=== PATIENT | male | born 1945 | race Caucasian/White ===

== ENCOUNTER 2016-10-02 00:22 | Emergency (ER) | payer MEDICARE, OTHER | END 2016-10-02 03:51 | disposition left against medical advice (07) | LOC: ER1 00:22 | DX: Z53.21 Procedure and treatment not carried out due to patient leaving prior to being seen by health care provider (principal) | CPT/HCPCS: 99282 ==

== ENCOUNTER 2021-05-13 16:26 | Inpatient (IN) | payer MEDICARE, OTHER ==
[~2021-05-13] VITALS: Ht 177.8 cm; Wt 100.3 kg
[2021-05-13 16:43] LABS: HEMOGLOBIN 12.9 gm/dl (14.0-17.5); RED BLOOD COUNT 4.54 M/UL (4.20-5.50); WHITE BLOOD COUNT 21.9 K/UL (4.5-11.0)
[2021-05-13 17:10] LABS: BUN/CREATININE RATIO 19 (0-10)
[2021-05-13] MEDS ORDERED: METFORMIN HCL1000 MG PO (22:30)
[2021-05-13] MEDS ORDERED: COZAAR 50MG TAB50 MG PO (22:30)
[2021-05-13] MEDS ORDERED: GLUCOTROL5 MG PO (22:31)
[2021-05-13] MEDS ORDERED: JANUVIA100 MG PO (22:31)
[2021-05-13] MEDS ORDERED: LISINOPRIL20 MG PO (22:31)
[2021-05-13] MEDS ORDERED: OMEPRAZOLE20 MG PO (22:32)
[2021-05-13] MEDS ORDERED: ONDANSETRON HCL8 MG PO (22:32)
[2021-05-13] MEDS ORDERED: PREGABALIN200 MG PO (22:32)
[2021-05-13] MEDS ORDERED: CLONAZEPAM1 MG PO (22:33)
[2021-05-13] MEDS ORDERED: HYDROCODON-ACE1 EAC6 PO (22:33)
[2021-05-14 01:51] LABS: RED BLOOD COUNT 4.5 M/UL (4.20-5.50)
[2021-05-14 02:09] LABS: HEMOGLOBIN 9.8 gm/dl (14.0-17.5)
[2021-05-14 05:15] LABS: RED BLOOD COUNT 4.33 M/UL (4.20-5.50); WHITE BLOOD COUNT 29.1 K/UL (4.5-11.0)
[2021-05-14 05:18] LABS: HEMOGLOBIN 12.1 gm/dl (14.0-17.5)
[2021-05-14 05:37] LABS: BUN/CREATININE RATIO 22 (0-10)
[2021-05-14 16:48] LABS: ACINETOBACTER BAUMANNII Not Detected (Negative); CANDIDA ALBICANS Not Detected (Negative); CANDIDA KRUSEI Not Detected (Negative); CANDIDA TROPICALIS Not Detected (Negative); ENTEROCOCCUS Not Detected (Negative); ESCHERICHIA COLI Not Detected (Negative); HAEMOPHILUS INFLUENZAE Not Detected (Negative); KLEBSIELLA OXYTOCA Not Detected (Negative); KLEBSIELLA PNEUMONIAE Not Detected (Negative); KPC-CARBAPENEM-RESISTANCE GENE Not Detected (Negative); PROTEUS Not Detected (Negative); PSEUDOMONAS AERUGINOSA Not Detected (Negative); SERRATIA MARCESANS Not Detected (Negative); STAPHYLOCOCCUS AUREUS Not Detected (Negative); STREP AGALACTIAE (GROUP B) Not Detected (Negative); STREP PYOGENES (GROUP A) Not Detected (Negative); STREPTOCOCCUS Not Detected (Negative); mecA (METHICILLIN RESIST GENE Not Detected (Negative); vanA/B (VANCOMYCIN RESIST GENE Not Detected (Negative)
[2021-05-14 18:00] LABS: STAPHYLOCOCCUS DETECTED (Negative)
[2021-05-14 19:06] LABS: BODY FLUID SOURCE PLEURAL; MONONUCLEAR CELLS 81.5 (75-100); POLYMORPHONUCLEAR % 18.5 (0-25); RBC (AUTOMATED) 1100 (0-100000); WBC (AUTOMATED) 302 (0-500)
[2021-05-14 19:08] LABS: LDH, BODY FLUID 68 U/L; TOTAL PROTEIN, BODY FLUID 2.3 gm/dL
[2021-05-15 04:50] LABS: HEMOGLOBIN 10.9 gm/dl (14.0-17.5); RED BLOOD COUNT 3.94 M/UL (4.20-5.50)
[2021-05-15 05:37] LABS: BUN/CREATININE RATIO 22 (0-10)
[2021-05-16 03:38] LABS: HEMOGLOBIN 11.6 gm/dl (14.0-17.5); RED BLOOD COUNT 4.16 M/UL (4.20-5.50)
[2021-05-16 03:39] LABS: WHITE BLOOD COUNT 20.9 K/UL (4.5-11.0)
[2021-05-17 04:02] LABS: HEMOGLOBIN 11.6 gm/dl (14.0-17.5); RED BLOOD COUNT 4.16 M/UL (4.20-5.50); WHITE BLOOD COUNT 20.9 K/UL (4.5-11.0)
[2021-05-19 05:27] LABS: HEMOGLOBIN 10.6 gm/dl (14.0-17.5); RED BLOOD COUNT 3.92 M/UL (4.20-5.50)
[2021-05-19 05:36] LABS: WHITE BLOOD COUNT 9.1 K/UL (4.5-11.0)
--- NOTE | 2021-05-19 19:37 | NUR ---
@1935 was assisting with pulling PT up in bed and while lifting PT up central line catheter was accidentally removed. The blue catheter in the RIJ was found lying in bed not in PT after PT pulled up on my side so in pulling PT up I accidentally D/Saul central line. Site was covered, no bleeding or bruising noted.
[2021-05-20 07:57] LABS: HEMOGLOBIN 10.4 gm/dl (14.0-17.5); RED BLOOD COUNT 3.76 M/UL (4.20-5.50)
[2021-05-20 07:58] LABS: WHITE BLOOD COUNT 12.3 K/UL (4.5-11.0)
[2021-05-21 02:39] LABS: HEMOGLOBIN 11.2 gm/dl (14.0-17.5); RED BLOOD COUNT 4.02 M/UL (4.20-5.50); WHITE BLOOD COUNT 14.9 K/UL (4.5-11.0)
[2021-05-21 03:04] LABS: BUN/CREATININE RATIO 56 (0-10)
[2021-05-22 04:12] LABS: HEMOGLOBIN 10.7 gm/dl (14.0-17.5); RED BLOOD COUNT 3.88 M/UL (4.20-5.50); WHITE BLOOD COUNT 13.9 K/UL (4.5-11.0)
[2021-05-22 05:35] LABS: BUN/CREATININE RATIO 53 (0-10)
--- NOTE | 2021-05-23 03:18 | NUR ---
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 multiple staff lifted patient back into bed no injuries are noted, some redness to his back no broken skin no complaints of pain form patient. patients son Felipe was notified at 0311, manager agriculture notified at 0313, MD at [phone]. patients bed alarm was activated, his v/s are as followes 153/77, 71,99% on 6L high flow.
[2021-05-23 05:10] LABS: HEMOGLOBIN 12.1 gm/dl (14.0-17.5); WHITE BLOOD COUNT 14.3 K/UL (4.5-11.0)
[2021-05-23 05:17] LABS: RED BLOOD COUNT 4.4 M/UL (4.20-5.50)
[2021-05-23 05:42] LABS: BUN/CREATININE RATIO 51 (0-10)
[2021-05-24 05:50] LABS: HEMOGLOBIN 11.7 gm/dl (14.0-17.5); RED BLOOD COUNT 4.3 M/UL (4.20-5.50); WHITE BLOOD COUNT 14.8 K/UL (4.5-11.0)
[2021-05-24 06:13] LABS: BUN/CREATININE RATIO 47 (0-10)
[2021-05-25 04:58] LABS: BUN/CREATININE RATIO 37 (0-10)
[2021-05-25 08:38] LABS: HEMOGLOBIN 11.3 gm/dl (14.0-17.5); RED BLOOD COUNT 4.11 M/UL (4.20-5.50); WHITE BLOOD COUNT 16.7 K/UL (4.5-11.0)
[2021-05-25 10:14] LABS: ALDOS/RENIN RATIO <.5 (0.0-30.0); ALDOSTERONE <1.0 ng/dL (0.0-30.0)
[2021-05-26 03:07] LABS: HEMOGLOBIN 10.3 gm/dl (14.0-17.5); WHITE BLOOD COUNT 15.4 K/UL (4.5-11.0)
[2021-05-26 03:23] LABS: RED BLOOD COUNT 3.65 M/UL (4.20-5.50)
[2021-05-26 04:33] LABS: BUN/CREATININE RATIO 35 (0-10)
[2021-05-27 10:57] LABS: BUN/CREATININE RATIO 32 (0-10)
[2021-05-27 11:31] LABS: HEMOGLOBIN 10.9 gm/dl (14.0-17.5); RED BLOOD COUNT 4.01 M/UL (4.20-5.50); WHITE BLOOD COUNT 15.3 K/UL (4.5-11.0)
[2021-05-28 03:17] LABS: HEMOGLOBIN 10.2 gm/dl (14.0-17.5); RED BLOOD COUNT 3.79 M/UL (4.20-5.50); WHITE BLOOD COUNT 13.7 K/UL (4.5-11.0)
[2021-05-28 03:44] LABS: BUN/CREATININE RATIO 31 (0-10)
[2021-05-28] MEDS ORDERED: ALDACTONE 25MG25 MG PO (10:49)
[2021-05-28] MEDS ORDERED: ASPIRIN EC81 MG PO (10:49)
[2021-05-28] MEDS ORDERED: MELATONIN3 MG PO (10:49)
[2021-05-28] MEDS ORDERED: POLYETHYLENE GL17 GM GT (10:49)
[2021-05-28] MEDS ORDERED: ATORVASTATIN CA20 MG PO (10:49)
[2021-05-28] MEDS ORDERED: LOPRESSOR 25 MG25 MG PO (10:49)
[2021-05-28] MEDS ORDERED: IPRAT-ALBUT 0.5-3 ML NEB (10:49)
[2021-05-28] MEDS ORDERED: OMNICEF 300 MG300 MG PO (10:51)
[2021-05-28] MEDS ORDERED: AMIODARONE HCL200 MG PO (14:09)
--- NOTE | 2021-05-28 15:09 | NUR ---
NOTE FOR 06/21/21 PATIENT TOLD SON IN FRONT OF THIS NURSE THAT HE PULLED ON THE RAIL AND FELL OUT OF THE BED, BIPAP WAS ON AND IT PREVENTED PATIENTS HEAD FROM HITTING. STATES HE WAS NOT HURT BUT THE FALL WAS ON NIGHTSHIFT. ALSO PATIENTS OTHER SON (NOT KAUSHAL) SAID HE KNEW WHERE PATIENT GOT THE LICE AND IT WAS FROM A FAMILY MEMBER. EDUCATED ON THE LICE BEING A COMMUNICABLE DISEASE, TO SON KAUSHAL, AND WE WANT TO PREVENT PATIENT GETTING THEM AGAIN WELL OUR OTHER PATIENTS. HE WAS APOLOGETIC AT THAT TIME 05-28-21 PATIENT AND SON ARE VERY IRRITABLE AND ANGRY, BLAMING THIS NURSE FOR BEING DISRESPECTFUL TO PATIENT BECAUSE HE WAS RETREATED FOR LICE. PATIENT HAD NITS IN HIS HAIR AND A LIVE LICE WAS FOUND ON INITIAL TREATMENT,WITNESSED PER ANNABEL URIOSTEGUI.
== END 2021-05-28 16:19 | disposition home health service (06) | DRG 870 ==
LOC: ER1 16:26 → CDU 20:30 → CCU 20:30 → PROG CARE 20:30 → CCU 23:00 → PROG CARE 05-20 11:24
PROVIDERS: Internal Medicine; Student in an Organized Health Care Education/Training Program; ADMIT Internal Medicine
PROC: 3E033XZ Introduction of Vasopressor into Peripheral Vein, Percutaneous Approach (ICD-10-PCS; principal; 2021-05-13)
PROC: 5A1955Z Respiratory Ventilation, Greater than 96 Consecutive Hours (ICD-10-PCS; 2021-05-13)
PROC: 0BH17EZ Insertion of Endotracheal Airway into Trachea, Via Natural or Artificial Opening (ICD-10-PCS; 2021-05-13)
PROC: 0W9G3ZZ Drainage of Peritoneal Cavity, Percutaneous Approach (ICD-10-PCS; 2021-05-14)
PROC: 02HV33Z Insertion of Infusion Device into Superior Vena Cava, Percutaneous Approach (ICD-10-PCS; 2021-05-14)
PROC: 0B9F8ZX Drainage of Right Lower Lung Lobe, Via Natural or Artificial Opening Endoscopic, Diagnostic (ICD-10-PCS; 2021-05-17)
PROC: 0BC48ZZ Extirpation of Matter from Right Upper Lobe Bronchus, Via Natural or Artificial Opening Endoscopic (ICD-10-PCS; 2021-05-17)
PROC: 0BJ08ZZ Inspection of Tracheobronchial Tree, Via Natural or Artificial Opening Endoscopic (ICD-10-PCS; 2021-05-17)
DX: A41.1 Sepsis due to other specified staphylococcus (principal); R65.21 Severe sepsis with septic shock; J15.9 Unspecified bacterial pneumonia; I50.23 Acute on chronic systolic (congestive) heart failure; I21.A1 Myocardial infarction type 2; J80 Acute respiratory distress syndrome; G93.41 Metabolic encephalopathy; R57.0 Cardiogenic shock; J44.0 Chronic obstructive pulmonary disease with (acute) lower respiratory infection; J44.1 Chronic obstructive pulmonary disease with (acute) exacerbation; E87.1 Hypo-osmolality and hyponatremia; I47.2 Ventricular tachycardia; E87.2 Acidosis; E87.0 Hyperosmolality and hypernatremia; Z20.822 Contact with and (suspected) exposure to COVID-19; E87.6 Hypokalemia; K66.9 Disorder of peritoneum, unspecified; F17.210 Nicotine dependence, cigarettes, uncomplicated; E11.9 Type 2 diabetes mellitus without complications; I11.0 Hypertensive heart disease with heart failure; N40.0 Benign prostatic hyperplasia without lower urinary tract symptoms; Z96.1 Presence of intraocular lens; E66.9 Obesity, unspecified; D64.9 Anemia, unspecified; E78.5 Hyperlipidemia, unspecified; E87.5 Hyperkalemia; Z85.528 Personal history of other malignant neoplasm of kidney; Z79.82 Long term (current) use of aspirin; Z79.4 Long term (current) use of insulin; Z98.41 Cataract extraction status, right eye; Z98.42 Cataract extraction status, left eye; Z79.01 Long term (current) use of anticoagulants; Z79.52 Long term (current) use of systemic steroids; Z68.27 Body mass index [BMI] 27.0-27.9, adult
CPT/HCPCS: ECHO; 31500; 36415; 36600; 71045; 71275; 74230; 78452; 80048; 80053; 80202; 82024; 82088; 82397; 82533; 82550; 82553; 82803; 82945; 82962; 83036; 83605; 83615; 83735; 83874; 83880; 83986; 84132; 84157; 84244; 84439; 84443; 84484; 85025; 85027; 85610; 85730; 87040; 87070; 87077; 87150; 87186; 87205; 87206; 87252; 89051; 92526; 92610; 92611-GN; 93005; 93306; 93931; 94002; 94003; 94640; 94660; 94664; 94760; 94761; 96365; 96366; 96375; 97116-GP-CQ; 97162; 97530-GP-CQ; 99285; A9502; C1729; C1751; C9113; J0330; J0456; J0692; J1644; J1650; J1940; J2370; J2405; J2704; J2760; J2785; J2920; J3010; J3370; J3475; J3480; J7030; J7040; J7050; J7070; P9047; Q9967; U0002

== ENCOUNTER 2021-08-22 20:36 | Inpatient (IN) | payer MEDICARE, OTHER ==
[~2021-08-22] VITALS: Ht 182.9 cm; Wt 106.6 kg
[~2021-08-22 20:36] MED LIST: ALDACTONE 25MG25 MG PO; AMIODARONE HCL200 MG PO; ASPIRIN EC81 MG PO; ATORVASTATIN CA20 MG PO; CLONAZEPAM1 MG PO; COZAAR 50MG TAB50 MG PO; GLUCOTROL5 MG PO; HYDROCODON-ACE1 EAC6 PO; IPRAT-ALBUT 0.5-3 ML NEB; JANUVIA100 MG PO; LISINOPRIL20 MG PO; LOPRESSOR 25 MG25 MG PO; MELATONIN3 MG PO; METFORMIN HCL1000 MG PO; OMEPRAZOLE20 MG PO; OMNICEF 300 MG300 MG PO; ONDANSETRON HCL8 MG PO; POLYETHYLENE GL17 GM GT; PREGABALIN200 MG PO
[2021-08-22 21:20] LABS: HEMOGLOBIN 11.5 gm/dl (14.0-17.5); RED BLOOD COUNT 4.26 M/UL (4.20-5.50); WHITE BLOOD COUNT 19.9 K/UL (4.5-11.0)
[2021-08-22 21:46] LABS: BUN/CREATININE RATIO 20 (0-10)
[2021-08-23 02:00] LABS: HEMOGLOBIN 9.9 gm/dl (14.0-17.5)
[2021-08-23 02:01] LABS: RED BLOOD COUNT 3.65 M/UL (4.20-5.50); WHITE BLOOD COUNT 9.5 K/UL (4.5-11.0)
[2021-08-24 05:12] LABS: RED BLOOD COUNT 3.38 M/UL (4.20-5.50); WHITE BLOOD COUNT 9.8 K/UL (4.5-11.0)
[2021-08-25 05:19] LABS: HEMOGLOBIN 10.1 gm/dl (14.0-17.5); RED BLOOD COUNT 3.69 M/UL (4.20-5.50); WHITE BLOOD COUNT 12.2 K/UL (4.5-11.0)
[2021-08-25] MEDS ORDERED: LASIX40 MG PO (12:35)
[2021-08-25] MEDS ORDERED: LISINOPRIL10 MG PO (12:35)
[2021-08-25] MEDS ORDERED: METOPROLOL SUCC25 MG PO (12:35)
[2021-08-25] MEDS ORDERED: DECADRON6 MG PO (12:35)
[2021-08-25] MEDS ORDERED: POLYETHYLENE GL17 GM GT (15:31)
[2021-08-26 16:13] LABS: HEPARIN INDUCED PLATELET AB 0.127 OD (0.000-0.400)
== END 2021-08-25 18:04 | disposition home or self-care (01) | DRG 177 ==
LOC: ER1 20:36 → CDU 23:10 → CCU 23:10
PROVIDERS: Family Medicine; Internal Medicine Critical Care Medicine; Internal Medicine Infectious Disease; ADMIT Internal Medicine
PROC: 3E0333Z Introduction of Anti-inflammatory into Peripheral Vein, Percutaneous Approach (ICD-10-PCS; 2021-08-22)
PROC: 5A09357 Assistance with Respiratory Ventilation, Less than 24 Consecutive Hours, Continuous Positive Airway Pressure (ICD-10-PCS; 2021-08-22)
PROC: 8E0ZXY6 Isolation (ICD-10-PCS; 2021-08-23)
PROC: B24BZZZ Ultrasonography of Heart with Aorta (ICD-10-PCS; principal; 2021-08-24)
DX: U07.1 COVID-19 (principal); I50.43 Acute on chronic combined systolic (congestive) and diastolic (congestive) heart failure; J12.82 Pneumonia due to coronavirus disease 2019; J96.21 Acute and chronic respiratory failure with hypoxia; J96.22 Acute and chronic respiratory failure with hypercapnia; J15.9 Unspecified bacterial pneumonia; I13.0 Hypertensive heart and chronic kidney disease with heart failure and stage 1 through stage 4 chronic kidney disease, or unspecified chronic kidney disease; J44.0 Chronic obstructive pulmonary disease with (acute) lower respiratory infection; N17.9 Acute kidney failure, unspecified; E87.2 Acidosis; I31.3 Pericardial effusion (noninflammatory); I42.9 Cardiomyopathy, unspecified; E11.22 Type 2 diabetes mellitus with diabetic chronic kidney disease; E66.9 Obesity, unspecified; D69.6 Thrombocytopenia, unspecified; R53.81 Other malaise; I08.1 Rheumatic disorders of both mitral and tricuspid valves; R00.1 Bradycardia, unspecified; N18.30 Chronic kidney disease, stage 3 unspecified; G89.4 Chronic pain syndrome; D63.1 Anemia in chronic kidney disease; E11.65 Type 2 diabetes mellitus with hyperglycemia; R19.00 Intra-abdominal and pelvic swelling, mass and lump, unspecified site; N40.0 Benign prostatic hyperplasia without lower urinary tract symptoms; Z85.53 Personal history of malignant neoplasm of renal pelvis; Z90.5 Acquired absence of kidney; Z79.01 Long term (current) use of anticoagulants; Z79.82 Long term (current) use of aspirin; Z79.52 Long term (current) use of systemic steroids; Z79.811 Long term (current) use of aromatase inhibitors; Z79.84 Long term (current) use of oral hypoglycemic drugs; Z79.83 Long term (current) use of bisphosphonates; Z79.51 Long term (current) use of inhaled steroids; Z98.42 Cataract extraction status, left eye; Z98.41 Cataract extraction status, right eye; Z87.891 Personal history of nicotine dependence; Z99.81 Dependence on supplemental oxygen; I25.2 Old myocardial infarction; Z68.31 Body mass index [BMI] 31.0-31.9, adult
CPT/HCPCS: 36415; 36600; 51702; 71045; 80048; 80053; 81001; 82550; 82553; 82803; 82962; 83605; 83615; 83880; 84484; 85025; 85362; 85379; 85610; 86140; 87040; 87081; 87086; 93005; 93308; 94640; 94660; 94664; 94760; 96374; 96375; 97110; 97110-GP-CQ; 97116; 97116-GP-CQ; 97161; 99284; J0456; J0696; J1100; J1650; J1940; J2930; J7030; J7050; U0002